=== PATIENT | female | born 1995 | race Caucasian/White ===

== ENCOUNTER → 2016-05-03 | Outpatient (CLI) | payer BC ==
[~2016-05-03] MED LIST: AMIT25TA PO; CIPR500T3 PO; CONC36TA4 PO; EXCETAB80 PO; FIOR1CAP PO; PRED10TA PO; RIZA5TAB3 PO; SERT-141 PO
--- NOTE | 2016-05-04 04:19 | REP ---
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 Technique: Transabdominal pelvic ultrasound followed by transvaginal examination for better evaluation of the endometrium and adnexa with color Doppler evaluation of the ovaries. Findings: Bladder is unremarkable and measures 8.9 x 5.6 x 8.2 cm . Normal anteverted uterus measures 7.7 x 3.0 x 4.0 cm . The endometrial complex measures 7.6 mm thickness. No discrete uterine or endometrial abnormalities are appreciated. Bilateral ovaries are normal in appearance and vascularity without evidence for torsion. Right ovary measures 2.7 x 2.0 x 2.6 cm with 2 cm dominant follicle ; R I = 0.51 . Left ovary measures 2.6 x 1.5 x 2.0 cm ; R I = 0.57 . No pelvic fluid or adnexal mass lesion . Impression: 1. Normal pelvic ultrasound Signed by Oli Nelson MD 05/04/2016 04:11 A
== END ==
LOC: M RAD 14:22
PROVIDERS: ATTEND Physician Assistant
DX: R10.2 Pelvic and perineal pain (principal); N96 Recurrent pregnancy loss

== ENCOUNTER → 2016-05-22 | Outpatient (CLI) | payer BC ==
[~2016-05-22] MED LIST changes: +GASTROGRAFIN SOLUTION 30ML (Q9963) As Ordered ONE
--- NOTE | 2016-05-23 05:32 | REP ---
Clinical: Pelvic and perineal pain. Technique: Axial contrast enhanced images from the lung bases to the pubic symphysis using oral and 100 ml Isovue 370 intravenous contrast material with precontrast images of the abdomen as well as coronal and sagittal re-formations. Findings: Lung bases clear. Visualized heart and pericardium normal. Liver, spleen, pancreas, bilateral adrenal glands and kidneys are normal. The enteric system is unremarkable and without obstruction or acute inflammatory process. Normal terminal ileum and appendix are identified in the right lower quadrant. The patient is status post cholecystectomy. Pelvis demonstrates normal bladder and age-appropriate uterus/adnexa. No pelvic fluid, mass, or (nail abnormality identified. No ascites. No intraperitoneal or retroperitoneal adenopathy. No free air. Abdominal aorta and vasculature appears normal. Surrounding musculoskeletal structures are intact. Impression: Normal pre and postcontrast CT of the abdomen and pelvis. Signed by Oli Nelson MD 05/23/2016 05:23 A
== END ==
LOC: M RAD 10:27
PROVIDERS: ATTEND Physician Assistant
DX: M54.5 Low back pain (principal)
CPT/HCPCS: 74178; Q9963

== ENCOUNTER → 2018-05-30 | Outpatient (REF) | payer BC ==
[~2018-05-30] MED LIST changes: -GASTROGRAFIN SOLUTION 30ML (Q9963) As Ordered ONE; -SERT-141 PO; +SERT50TA PO
== END ==
LOC: M SFHCLERA 13:56
PROVIDERS: ATTEND Physician Assistant
DX: R11.11 Vomiting without nausea (principal)